=== PATIENT | male | born 2000 | race Caucasian/White ===

== ENCOUNTER → 2023-11-24 15:05 | Outpatient (REF) | payer BC, SELFPAY ==
[2023-11-24 16:58] LABS: % Basophils 0.5 % (0-2); % Eosinophils 7.4 % (0-6); % Immature Granulocytes 0.5 % (0-0.5); % Monocytes 4.9 % (1.7-9.3); % Neutrophils 60.7 % (42.2-75.2); Absolute Eosinophils 0.6 10^3/uL (0-0.7); Absolute Lymphocytes 2.1 10^3/uL (1.2-3.4); Absolute Monocytes 0.4 10^3/uL (0.1-0.6); Absolute Neutrophils 4.9 10^3/uL (1.4-6.5); Hematocrit 42.8 % (39.0-52.0); Hemoglobin 14.9 g/dL (13.0-18.0); Mean Corp Hgb Conc. 34.8 g/dL (33.0-37.0); Mean Corpuscular Hgb 29.2 pg (27.0-31.0); Mean Corpuscular Volume 83.8 fL (80.0-94.0); Mean Platelet Volume 9.7 fL (7.4-10.4); Nucleated Red Blood Cells % 0 % (-); Platelet Count 259 10^3/uL (130-400); Red Blood Cell Count 5.11 10^6/uL (4.70-6.10); Red Cell Dist. Width 11.7 % (11.5-14.5); White Blood Cell Count 8.1 10^3/uL (4.8-10.8)
[2023-11-24 17:23] LABS: ALT (SGPT) 22 U/L (0-50); AST (SGOT) 22 U/L (17-59); Albumin 4.9 g/dl (3.5-5.0); Alkaline Phosphatase 68 U/L (38-126); Blood Urea Nitrogen 16 mg/dl (9-20); Calcium 9.7 mg/dl (8.4-10.2); Carbon Dioxide 25 mmol/L (22-30); Chloride 104 mmol/L (98-107); Glucose 78 mg/dl (70-99); HDL Cholesterol 70 mg/dl; LDL Cholesterol, Calculated 136 mg/dl; Potassium 4.4 mmol/L (3.5-5.1); Sodium 141 mmol/L (135-145); Total Cholesterol 217 mg/dl (50-199); Total Protein 7.1 g/dl (6.3-8.2); Triglyceride 58 mg/dl (10-149); Very Low Density Lipoprotein 11 mg/dl (0-30); eGFR > 60.00
[2023-11-24 17:52] LABS: TSH Reflex To Free T4 1.51 uIU/ml (0.47-4.68)
== END ==
LOC: REG 15:05
PROVIDERS: ATTENDING PHYSICIAN Nurse Practitioner Adult Health
DX: Z00.00 Encounter for general adult medical examination without abnormal findings (principal); Z13.29 Encounter for screening for other suspected endocrine disorder; Z13.220 Encounter for screening for lipoid disorders
CPT/HCPCS: 36415; 80053; 80061; 84443; 85025

== ENCOUNTER 2025-01-12 09:47 | Emergency (ER) | payer OTHER, SELFPAY ==
[2025-01-12 09:48] VITALS: BP 150/100
[2025-01-12] MEDS: DELTASONE 40 MG PO (09:59)
[2025-01-12] MEDS: DUONEB 3 ML INH (10:01)
--- NOTE | 2025-01-12 10:06 | ED.GENMED ---
History of Present Illness
General
Chief Complaint: Breathing Problem
Source: patient
Time Seen by Provider: 01/12/25 09:54
History of Present Illness
History of Present Illness:
24-year-old male with past medical history of asthma presenting to the emergency department for evaluation of mild URI-like symptoms over the last couple of days, today felt as if the head congestion settled into his chest causing some chest
tightness, wheezing and cough. Patient used his inhaler approximately 2 hours prior to arrival with some relief but quick return of symptoms. Denies any fevers, chills or rigors. No known sick contacts or recent antibiotics. No recent
hospitalizations for asthma in the past. States that he has had better relief with ProAir inhaler in the past. No other concerns.
Past History
Past History
ED Past Medical History: Asthma
ED Past Surgical History: None
Social History
Tobacco: Non-smoker
Alcohol: None
Drug: None
Personal: Single
Living: with family
Employment: Employed
Review of Systems
Review of Systems
All Other Systems: ROS reviewed and negative except as documented in HPI and ROS
Phy Exam
Physical Exam
Physical Exam:
GENERAL: Alert , in no apparent distress
HEAD: Normocephalic atraumatic
EYE: conjunctiva clear
NECK: Supple, no significant adenopathy.
ENT: o/p clr, mmm.
CARDIAC: Regular rate and rhythm
LUNGS: Expiratory wheeze anterior and posterior lung glover, no respiratory distress, speaking full sentences, no accessory muscle use
NEUROLOGICAL: Alert and oriented
SKIN: Warm and dry, skin intact.
MUSCULOSKELETAL: well perfused.
PSYCH: Normal and appropriate interaction.
Scores
Heart Failure Risk
Heart Failure Risk Score: Not Applicable
Heart Score for Chest Pain Patients
STEMI patient?: Not applicable
Withdrawal Assessment of Alcohol
Withdrawal Assessment Completed?: Not applicable
Course
Orders/Labs/Results
Orders:
Orders
01/12/25 09:53
Ipratropium/Albuterol Sulfate [Duoneb] 3 ml .ROUTE .STK-MED ONE
01/12/25 09:56
Prednisone [Deltasone] 40 mg PO NOW STA
01/12/25 09:57
CR Chest - 2 Views Urgent
Comment:
Reason For Exam: cough, URI
01/12/25 10:01
Ipratropium/Albuterol Sulfate [Duoneb] 3 ml INH R NOW ONE
Vital Signs
Initial and Last Documented VS:
Initial Vital Signs
Temp Pulse Resp BP Pulse Ox
98.3 F 101 18 150/100 98
01/12/25 09:48 01/12/25 09:48 01/12/25 09:48 01/12/25 09:48 01/12/25 09:48
Last Documented Vital Signs
Temp Pulse Resp BP Pulse Ox
98.3 F 79 20 129/84 98
01/12/25 09:48 01/12/25 11:00 01/12/25 11:00 01/12/25 11:00 01/12/25 11:00
MDM/Problems Addressed
Differential Diagnosis Includes:
COVID
Flu
Other viral etiology
Pneumonia
Acute asthma exacerbation
MDM/Problems Addressed:
24-year-old male presenting to the ER for evaluation of asthma exacerbation likely induced by a recent viral URI. No fevers. Patient in no acute distress. Will treat with nebulizer as well as 40 mg of prednisone. Chest x-ray ordered.
Disposition pending.
Chronic conditions affecting care: Asthma
Acute Exacerbation and/or Progression of Chronic Illness: Asthma
*Radiology
Radiology exam reviewed: preliminary read by ED provider ( Normal chest x-ray)
*Pulse Oximetry
SaO2: 98
Oxygen Mode of Delivery: Room air
Patient hypoxic: no
*Critical Care Note
Total Time (30-74mins, 75-104mins- exclusive of procedures): Not Applicable
Patient Management
Escalation/DeEscalation of care consider admission/obs:
Offered to continue to observe patient in the ER but he stated he felt comfortable being discharged home on reevaluation wheezing is fully resolved. Short-term course of prednisone and ProAir were sent to pharmacy. Aware of return precautions to
the ER.
ED Attending Note
-
Portions of this chart may have been created with voice recognition software.� Occasional wrong word or��sound alike� substitutions may have occurred due to the inherent limitations of voice recognition software.
Discharge Plan
Departure
Patient Disposition: Home (Routine Discharge)
Date of Disposition: 01/12/25
Time of Disposition: 10:51
Patient with high blood pressure during this ER visit?: Yes
Discharge Problem:
Acute asthma exacerbation, URI (upper respiratory infection)
Instructions: Asthma, Adult (DC)
Prescriptions:
New
prednisone 20 mg tablet
40 mg PO DAILY 4 Days Qty: 8 0RF
ProAir RespiClick 90 mcg/actuation aerosol powdr breath activated
2 inh inhalation Q6H PRN (Reason: shortness of breath or wheezing) Qty: 1 0RF
No Action
prednisone 50 MG tablet
50 mg PO DAILY Qty: 5 0RF
Referrals:
Sandra Chow CRNP [Family Provider, General]
Interventions
Interventions:
*Risk Screen - Suicide Last Done: 01/12/25 10:00
*General Assessment Last Done: 01/12/25 09:48
*Neglect/Abuse Screening Last Done: 01/12/25 09:48
*ED- Fall Risk Assessment Last Done: 01/12/25 10:00
*ED COVID-19 Vaccine History Last Done: 01/12/25 10:50
*ED Influenza Vaccine History Last Done: 01/12/25 10:00
*Nursing Disposition Last Done: 01/12/25 11:00
ED- Cardiac Assessment Last Done: 01/12/25 10:00
ED- Pulmonary Assessment Last Done: 01/12/25 10:00
Discharge Date and Time
Discharge Date/Time: 01/12/25 11:00
Print Language: [id number]
[2025-01-12 11:00] VITALS: BP 129/84
== END 2025-01-12 11:00 | disposition home or self-care (01) ==
LOC: EMR 09:47
PROVIDERS: EMERGENCY PHYSICIAN Emergency Medicine; FAMILY PHYSICIAN Nurse Practitioner Adult Health
DX: J45.901 Unspecified asthma with (acute) exacerbation (principal); J06.9 Acute upper respiratory infection, unspecified
CPT/HCPCS: 94640; 99283; 71046